=== PATIENT | female | born 1955 | race Caucasian/White ===

== ENCOUNTER 2021-01-26 11:25 | Emergency (ER) | payer MEDICARE, MEDICAID, SELFPAY ==
[2021-01-26 11:39] VITALS: BP 174/85; PULSE 108; RESP 20; TEMP 37.3; O2SAT 96
--- NOTE | 2021-01-26 11:53 | ED.URI ---
HPI - URI/Sore Throat General Chief Complaint: Upper Respiratory Infection Stated Complaint: Cold Time Seen by Provider: 01/26/21 11:45 Source: patient and RN notes reviewed Mode of arrival: ambulatory Limitations: no limitations History of Present Illness HPI Narrative: Nika is a 65-year-old female patient who [facility]. Patient states she has had a productive cough for 2 weeks, shortness of breath, increased wheezing. Patient states she called her primary care doctor who said they could not see sick people. Patient states she is having pain on her right chest and pain with deep breath. Patient has used her albuterol inhaler 3 times yesterday and once today. Patient states that 1 time at home her oxygen level was 90%. Patient still continues to smoke 1 pack/day. Patient states the sputum is thick and white. MD elicited complaint: cough Related Data Home Medications Medication Instructions Recorded Confirmed albuterol sulfate INHALATION 01/26/21 albuterol sulfate [Ventolin HFA] INHALATION 01/26/21 amitriptyline 01/26/21 brimonidine drp 01/26/21 clonazepam 01/26/21 cyclobenzaprine mg 01/26/21 dicyclomine mg 01/26/21 famotidine 01/26/21 ipratropium-albuterol ml INHALATION 01/26/21 ketorolac drp 01/26/21 levothyroxine 01/26/21 losartan-hydrochlorothiazide tablet 01/26/21 moxifloxacin drp 01/26/21 nortriptyline 01/26/21 omeprazole 01/26/21 oxycodone-acetaminophen 01/26/21 prednisolone acetate drp 01/26/21 prednisone 01/26/21 simvastatin mg 01/26/21 sulfasalazine 01/26/21 umeclidinium-vilanterol [Anoro INHALATION 01/26/21 Ellipta] venlafaxine mg PO 01/26/21 Allergies Allergy/AdvReac Type Severity Reaction Status Date / Time Penicillins Allergy Mild Rash Verified 01/26/21 11:35 levofloxacin Allergy Unknown Rash Verified 01/26/21 11:35 Review of Systems Review of Systems: CONSTITUTIONAL: Denies body aches, fever, chills, or sweats. EYES: Denies visual changes, redness, or discharge. ENT: Denies rhinorrhea, congestion, sore throat, or otalgia. CARDIOVASCULAR: Denies chest pain, palpitations, or edema. RESPIRATORY: + cough + wheezing. GASTROINTESTINAL: Denies abdominal pain, nausea, vomiting, or diarrhea. GENITOURINARY: Denies dysuria or hematuria. SKIN: Denies rash, itching, or wounds. MUSCULOSKELETAL: Denies back pain, joint pain, or myalgia. NEUROLOGIC: Denies headache, numbness, tingling, or weakness. PSYCH: Denies depression or anxiety. All systems reviewed & are unremarkable except as noted in HPI and below PMFSH Comments At time of signature, I have reviewed and agree with nursing past medical, surgical, social and family history unless otherwise noted. Please see nursing chart for further information. There is no relevant family history pertinent to the presenting complaint Exam Narrative: GENERAL: Well-appearing, well-nourished, and in no acute distress. HEAD: Normocephalic, atraumatic. EYES: EOMI. No redness or drainage. Conjunctivae normal. ENT: Mucous membranes pink and dry. Nares clear. No rhinorrhea. TMs normal bilaterally. Throat normal. psot nasal drainage noted. Uvula midline. NECK: Normal AROM. Supple. No lymphadenopathy. CHEST: Bilateral breath sounds wheezing throughout. MUSCULOSKELETAL: No bony tenderness. pain with palpation right chest. EXTREMITIES: Normal range of motion. No edema. SKIN: Warm, dry, no rash. Capillary refill normal. Normal skin turgor. NEURO: No focal deficits. Alert and oriented x3. Gait steady. PSYCH: Normal affect. No signs of depression or anxiety. Course Vital Signs Vital signs: Vital Signs Temperature 37.3 C 01/26/21 11:39 Pulse Rate 108 H 01/26/21 11:39 Respiratory Rate 20 01/26/21 11:39 Blood Pressure 174/85 H 01/26/21 11:39 Pulse Oximetry 96 01/26/21 11:39 Temperature 37.3 C 01/26/21 11:39 Pulse Rate 108 H 01/26/21 11:39 Respiratory Rate 20 01/26/21 11:39 Blood
== END 2021-01-26 12:05 | disposition home or self-care (01) ==
PROVIDERS: Emergency Provider Nurse Practitioner Family
DX: J40 Bronchitis, not specified as acute or chronic (principal); Z86.73 Personal history of transient ischemic attack (TIA), and cerebral infarction without residual deficits; G40.909 Epilepsy, unspecified, not intractable, without status epilepticus; E78.00 Pure hypercholesterolemia, unspecified; I10 Essential (primary) hypertension; J45.909 Unspecified asthma, uncomplicated; M06.9 Rheumatoid arthritis, unspecified; M81.0 Age-related osteoporosis without current pathological fracture; E03.9 Hypothyroidism, unspecified
CPT/HCPCS: 99203; G0463